=== PATIENT | male | born 1990 | race African-American/Black ===

== ENCOUNTER 2024-05-14 03:00 | Emergency (ER) | payer MEDICAID, OTHER ==
[~2024-05-14] VITALS: Ht 170.2 cm; Wt 63.0 kg
[2024-05-14 03:05] VITALS: BP 129/96; PULSE 78; RESP 16; TEMP 98; O2SAT 100
[2024-05-14 03:16] VITALS: O2SAT 100
[2024-05-14] MEDS: ONDANSETRON 4 MG ODT PO ONE (03:24)
[2024-05-14] MEDS ORDERED: ONDA8TAB87 PO ×2 (03:25→13:45)
[2024-05-14] MEDS ORDERED: IBUP-2213 PO ×2 (03:25→13:45)
[2024-05-14 03:43] VITALS: BP 129/96; PULSE 78; RESP 16; TEMP 98; O2SAT 100
== END 2024-05-14 03:43 | disposition home or self-care (01) ==
LOC: MED 03:00
DX: R10.32 Left lower quadrant pain (principal); R11.2 Nausea with vomiting, unspecified; R03.0 Elevated blood-pressure reading, without diagnosis of hypertension; F17.210 Nicotine dependence, cigarettes, uncomplicated
CPT/HCPCS: 99283; Q0162